=== PATIENT | female | born 1995 | race Caucasian/White ===

== ENCOUNTER 2019-12-16 22:37 | Inpatient (IN) ==
[2019-12-16] MEDS ORDERED: ONDANSETRON 4 MG/2 ML VIAL IV PRN (22:53)
[2019-12-16] MEDS ORDERED: LACTATED RINGERS 250 ML IV ONE (22:53)
[2019-12-16] MEDS ORDERED: LACTATED RINGERS 500 ML IV PRN (22:53)
[2019-12-16] MEDS ORDERED: LACTATED RINGERS 1,000 ML IV SCH (23:00)
[2019-12-16 23:26] LABS: Basophils % 0.3 % (0.0-0.8); Eosinophils # 0.1 10*3/uL (0.0-0.87); Eosinophils % 1.3 % (0.00-10.9); Hematocrit 37.5 VOL% (35.7-47.0); Hemoglobin 12.2 GM/DL (12.0-16.0); Immature Granulocytes % 0.9 %; Lymphocytes # 2.9 10*3/uL (1.4-4.0); Mean Corpuscular HGB Conc 32.5 GM/DL (32-36); Mean Corpuscular Volume 91.7 FL (87-102); Mean Platelet Volume 9.6 FL (9.6-12.0); Neutrophils % 65.5 % (38.7-73.9); Platelet Count 240 T/CUMM (130-400); Red Blood Count 4.09 MC/CUMM (3.8-5.5)
[2019-12-17] MEDS ORDERED: ALUMINUM/MAGNES/SIMETH MAX STR 30 ML UDCUP PO PRN (01:03)
[2019-12-17] MEDS ORDERED: BUTORPHANOL 2 MG/ML VIAL IV PRN (07:19)
[2019-12-17] MEDS ORDERED: LACTATED RINGERS 1,000 ML IV ONE (07:20)
[2019-12-17] MEDS ORDERED: CITRIC ACID/SODIUM CITRATE 30 ML UDCUP PO ONE (07:20)
[2019-12-17] MEDS ORDERED: ePHEDrine 50 MG/ML AMP IV PRN (07:20)
[2019-12-17] MEDS ORDERED: FAMOTIDINE 20 MG/2 ML VIAL IV ONE (07:20)
[2019-12-17] MEDS ORDERED: PROMETHAZINE 25 MG/1 ML VIAL IM ONE (07:22)
[2019-12-17] MEDS ORDERED: NALOXONE 0.4 MG/ML VIAL IV PRN (07:22)
[2019-12-17] MEDS ORDERED: hydrOXYzine HCL 25 MG/1 ML VIAL IM PRN (07:22)
[2019-12-17] MEDS ORDERED: diphenhydrAMINE 50 MG/1 ML VIAL IV PRN ×2 (07:22)
[2019-12-17] MEDS ORDERED: fentaNYL 2 MCG/ROPIV 0.2% EPID 100 ML EPIDURAL SCH (07:30)
[2019-12-17] MEDS: OXYTOCIN/LR 20 UNIT/1,000 ML BAG IV SCH ×2 (08:30→16:09)
[2019-12-17 11:36] LABS: Apearance,Urine CLEAR (Clear); Bilirubin,Urine Negative (Negative); Blood, Urine Negative (Negative); Glucose,Urine (UA) Negative (Negative); Ketones,Urine 5 mg/dL (Negative); Mucus,Urine Occasional /LPF (Occasional); Nitrite,Urine Negative (Negative); Protein,Urine Negative; RBC,Urine 1 /HPF (0-4); Squamous Epithelial Cell,Urine Occasional /HPF (0-10); Urine Color Yellow (Yellow); Urine Specific Gravity 1.015 (1.001-1.035); Urine Urobilinogen < 2.0 EU/DL (0.2-1.0)
[2019-12-17] MEDS ORDERED: ACETAMINOPHEN 500 MG TABLET PO PRN (12:16)
[2019-12-17] MEDS ORDERED: miSOPROStoL 200 MCG TABLET ONE (13:41)
[2019-12-17] MEDS ORDERED: CARBOPROST TROMETHAMINE 250 MCG/ML AMP IM ONE (13:42)
[2019-12-17] MEDS ORDERED: METHYLERGONOVINE 0.2 MG/1 ML AMP ONE (13:42)
[2019-12-17] MEDS ORDERED: METHYLERGONOVINE 0.2 MG/1 ML AMP IM ONE (14:03)
[2019-12-17] MEDS ORDERED: miSOPROStoL 200 MCG TABLET PO ONE (14:07)
[2019-12-17] MEDS ORDERED: IBUPROFEN 800 MG TABLET ONE (21:10)
[2019-12-17] MEDS: IBUPROFEN 800 MG TABLET PO PRN (21:15)
[2019-12-17] MEDS: DOCUSATE SODIUM 100 MG CAPSULE PO SCH (21:15)
[2019-12-18 04:58] LABS: Basophils # 0.1 10*3/uL (0.0-0.2); Basophils % 0.4 % (0.0-0.8); Eosinophils # 0.2 10*3/uL (0.0-0.87); Eosinophils % 1.7 % (0.00-10.9); Hematocrit 30.4 VOL% (35.7-47.0); Immature Granulocytes % 0.8 %; Lymphocytes % 24.2 % (21.3-54.2); Mean Corpuscular HGB Conc 33.2 GM/DL (32-36); Mean Corpuscular Volume 89.9 FL (87-102); Mean Platelet Volume 9.8 FL (9.6-12.0); Monocytes % 8.6 % (1.7-12.7); Neutrophils % 64.3 % (38.7-73.9); Red Blood Count 3.38 MC/CUMM (3.8-5.5); Red Cell Distribution Width 13.9 % (9.3-17.3); White Blood Count 12.5 T/CUMM (4-12)
[2019-12-18 05:01] LABS: Hemoglobin 10.1 GM/DL (12.0-16.0); Platelet Count 180 T/CUMM (130-400)
[2019-12-18] MEDS: IBUPROFEN 800 MG TABLET PO PRN (06:32)
[2019-12-18] MEDS: DOCUSATE SODIUM 100 MG CAPSULE PO SCH ×2 (10:21→23:26)
[2019-12-19] MEDS: IBUPROFEN 800 MG TABLET PO PRN (00:37)
[2019-12-19 07:15] VITALS: BP 110/74
[2019-12-19] MEDS ORDERED: DIPH/TET/ACEL PERT BOOSTER VACCINE 0.5 ML VIAL IM ONE (10:54)
[2019-12-19] MEDS: DOCUSATE SODIUM 100 MG CAPSULE PO SCH (16:25)
== END 2019-12-19 12:30 | disposition home or self-care (01) | DRG 560 ==
LOC: N.LDOUT 22:37 → N.LD 22:40 → N.OB 12-17 16:18
PROVIDERS: ADMIT Specialist; ATTEND Specialist